=== PATIENT | male | born 1950 | race Caucasian/White ===

== ENCOUNTER 2017-03-06 01:18 | Inpatient (IN) | payer OTHER, MEDICARE ==
[2017-03-06] VITALS (9 sets, daily range): BP systolic 126–177; BP diastolic 72–99; PULSE 54–97; RESP 16–22; TEMP 95.7–98.4; O2SAT 95–99
[2017-03-06] MEDS ORDERED: MORP1TAB24 PO (01:30)
[2017-03-06] MEDS ORDERED: OXYC1CAP PO (01:30)
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
[2017-03-06] MEDS ORDERED: ONDANSETRON HCL 4 MG/2 ML VIAL IV PRN ×2 (04:00→08:15)
[2017-03-06] MEDS ORDERED: ACETAMINOPHEN 325 MG TAB PO PRN (04:00)
[2017-03-06] MEDS ORDERED: SODIUM CHLORIDE 0.9% FLUSH 10 ML FLUSH IVF PRN (04:00)
[2017-03-06] MEDS: MORPHINE SULFATE 4 MG/ML INJ IV PUSH PRN ×3 (06:44→21:17)
[2017-03-06] MEDS: SODIUM CHLORIDE 0.9% FLUSH 10 ML FLUSH IV FLUSH SCH ×2 (08:12→21:00)
[2017-03-06] MEDS ORDERED: SODIUM CHLORIDE 0.9% FLUSH 10 ML FLUSH IV FLUSH PRN (08:15)
[2017-03-06] MEDS ORDERED: ENALAPRILAT 1.25 MG/ML VIAL IV PRN (08:15)
[2017-03-06] MEDS: DOCUSATE SODIUM 50 MG/SENNA 8.6 MG TAB PO SCH ×2 (09:20→21:00)
[2017-03-06] MEDS: KETOROLAC TROMETHAMINE 30 MG/ML (IVP) VIAL IVP SCH ×3 (09:20→21:15)
[2017-03-06] MEDS: ACETAMINOPHEN 1000 MG/100 ML VIAL IV SCH ×3 (09:21→21:14)
--- NOTE | 2017-03-06 09:27 | RADRPT ---
EXAM DATE/TIME: 03/06/2017 09:20 [facility] COMPARISON: No previous studies available for comparison. INDICATIONS : History of Rib fractures right side. Right sided chest pain MEDICAL HISTORY : Hepatitis C. SURGICAL HISTORY : None. ENCOUNTER: Initial ACUITY: 1 day PAIN SCORE: 9/10 LOCATION: Right chest FINDINGS: The right lung is clear. At the left lung base laterally proximal opacity is seen possibly representi ng an area of scarring versus mild focal infiltrate. There is mild cardiomegaly. There is abnormal fo susie lucency the right distal clavicle with some adjacent calcific density along the superior margin. A right distal clavicular fracture is suspected, and a pathologic fracture is difficult to exclude gi carlos the appearance. Correlate for point tenderness. CONCLUSION: Right distal clavicular fracture, possibly pathologic is suspected. Correlate for point tenderness ju st proximal to the acromioclavicular joint. Right lung is clear. Left basilar opacity likely scarring versus minimal focal infiltrate. Kaden Zacarias MD on March 06, 2017 at 9:23 Board Certified Radiologist. This report was verified electronically.
[2017-03-06] MEDS ORDERED: HYDROmorphone HCL PF 1 MG/ML VIAL IV PUSH PRN (11:00)
[2017-03-06] MEDS: RESP: ALBUTEROL 2.5 MG/IPRATROPIUM 0.5 MG NEB (SCH) NEB ×3 (11:03→20:28)
[2017-03-06] MEDS: METHOCARBAMOL 500 MG TAB PO SCH ×3 (11:07→21:16)
[2017-03-06] MEDS: LIDOCAINE HCL 5% PATCH T-DERMAL SCH (11:07)
[2017-03-06] MEDS: BACITRACIN TOP OINT 15 GM TUBE TOP SCH ×2 (11:08→21:00)
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
[2017-03-06] MEDS: ENOXAPARIN SODIUM 30 MG/0.3 ML SYRINGE SQ SCH (13:50)
[2017-03-06] MEDS: MORPHINE SULFATE 15 MG CONTROLLED RELEASE TAB PO SCH ×2 (13:50→21:16)
[2017-03-07] VITALS (8 sets, daily range): BP systolic 112–158; BP diastolic 66–101; PULSE 67–102; RESP 16–20; TEMP 96.9–99.8; O2SAT 91–96
[2017-03-07] MEDS: KETOROLAC TROMETHAMINE 30 MG/ML (IVP) VIAL IVP SCH ×4 (01:43→19:50)
[2017-03-07] MEDS: ENOXAPARIN SODIUM 30 MG/0.3 ML SYRINGE SQ SCH ×2 (01:43→14:48)
[2017-03-07] MEDS: ACETAMINOPHEN 1000 MG/100 ML VIAL IV SCH (02:15)
[2017-03-07] MEDS: METHOCARBAMOL 500 MG TAB PO SCH ×3 (05:01→23:27)
[2017-03-07 07:45] LABS: AUTOMATED NEUTROPHIL # 3.7 TH/MM3 (1.8-7.7); BASOPHIL % 0.3 % (0.0-2.0); EOSINOPHIL # 0.2 TH/MM3 (0-0.4); EOSINOPHIL % 3.9 % (0.0-4.0); HEMATOCRIT 37.8 % (39.0-51.0); HEMO FLAGS DIFF FINAL; LYMPH % 19.1 % (9.0-44.0); LYMPHOCYTE # 1.1 TH/MM3 (1.0-4.8); MEAN CELL VOLUME 92.7 FL (80.0-100.0); MEAN CORPUSCULAR HEMOGLOBIN 31.2 PG (27.0-34.0); MEAN CORPUSCULAR HGB CONC 33.6 % (32.0-36.0); MONO % 10.1 % (0.0-8.0); NEUT % 66.6 % (16.0-70.0); PLATELET COUNT 167 TH/MM3 (150-450); RED BLOOD COUNT 4.07 MIL/MM3 (4.50-5.90); RED CELL DISTRIBUTION WIDTH 14.8 % (11.6-17.2); WHITE BLOOD COUNT 5.5 TH/MM3 (4.0-11.0)
[2017-03-07] MEDS: RESP: ALBUTEROL 2.5 MG/IPRATROPIUM 0.5 MG NEB (SCH) NEB ×4 (08:01→21:17)
[2017-03-07 08:35] LABS: BICARBONATE 29.1 MEQ/L (21.0-32.0)
[2017-03-07] MEDS: DOCUSATE SODIUM 50 MG/SENNA 8.6 MG TAB PO SCH ×2 (09:00→19:49)
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
[2017-03-07] MEDS: MORPHINE SULFATE 15 MG CONTROLLED RELEASE TAB PO SCH ×2 (09:24→19:49)
[2017-03-07] MEDS: BACITRACIN TOP OINT 15 GM TUBE TOP SCH ×2 (09:24→19:50)
[2017-03-07] MEDS: SODIUM CHLORIDE 0.9% FLUSH 10 ML FLUSH IV FLUSH SCH ×2 (09:25→19:50)
[2017-03-07] MEDS: LIDOCAINE HCL 5% PATCH T-DERMAL SCH (09:25)
[2017-03-07] MEDS ORDERED: PNEUMOCOCCAL POLYVALENT INJ 25 MCG/0.5 ML SYR IM ONE (10:00)
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
[2017-03-07] MEDS ORDERED: LIDO5DIS5 T-DERMAL (16:36)
[2017-03-08] VITALS (7 sets, daily range): BP systolic 118–150; BP diastolic 81–92; PULSE 82–88; RESP 17–18; TEMP 97.8–99.5; O2SAT 92–95
[2017-03-08] MEDS: KETOROLAC TROMETHAMINE 30 MG/ML (IVP) VIAL IVP SCH ×4 (01:46→20:46)
[2017-03-08] MEDS: ENOXAPARIN SODIUM 30 MG/0.3 ML SYRINGE SQ SCH ×2 (01:46→13:43)
[2017-03-08] MEDS: METHOCARBAMOL 500 MG TAB PO SCH ×3 (06:13→22:13)
[2017-03-08] MEDS: RESP: ALBUTEROL 2.5 MG/IPRATROPIUM 0.5 MG NEB (SCH) NEB ×4 (07:42→20:04)
[2017-03-08] MEDS: DOCUSATE SODIUM 50 MG/SENNA 8.6 MG TAB PO SCH ×2 (09:00→20:47)
[2017-03-08] MEDS: LIDOCAINE HCL 5% PATCH T-DERMAL SCH (10:28)
[2017-03-08] MEDS: SODIUM CHLORIDE 0.9% FLUSH 10 ML FLUSH IV FLUSH SCH ×2 (10:28→20:46)
[2017-03-08] MEDS: MORPHINE SULFATE 15 MG CONTROLLED RELEASE TAB PO SCH ×2 (10:29→20:46)
[2017-03-08] MEDS: BACITRACIN TOP OINT 15 GM TUBE TOP SCH ×2 (10:29→20:50)
--- NOTE | 2017-03-08 14:39 | PD.ORT.PN ---
Subjective Subjective Remarks Patient comfortable. Pain controlled. Objective Vitals Vital Signs Date Time Temp Pulse Resp B/P Pulse Ox O2 Delivery O2 Flow Rate FiO2 03/08/17 12:02 98.8 84 18 139/88 93 03/08/17 08:00 99.5 86 18 135/84 95 03/08/17 07:44 92 21 03/08/17 00:00 98.9 83 17 139/86 94 03/07/17 21:20 91 21 03/07/17 20:00 99.5 91 16 135/73 95 03/07/17 16:00 99.3 76 19 116/83 93 I/O 03/07/17 03/07/17 03/07/17 03/08/17 03/08/17 03/08/17 07:00 15:00 23:00 07:00 15:00 23:00 Intake Total 250 ml 400 ml 720 ml 480 ml Balance 250 ml 400 ml 720 ml 480 ml Intake Oral 400 ml 720 ml 480 ml IV Total 250 ml # Voids 4 2 1 Result Diagram: 03/07/17 0624 03/07/17 0624 Objective Remarks Right clavicle significant ecchymosis swelling noted to shoulder and hands tenderness with direct palpation to fx site 2+ dorsalis pedis pulses +sensation sling in place Right ribs skin intact no obvious deformity tenderness with direct palpation Assessment & Plan Problem List: (1) Multiple fractures of ribs of right side (2) Right clavicle fracture Assessment and Plan 1. Right-sided rib fractures. 2. Right distal clavicle fracture. Non-operative approach for rib and clavicle fractures at this time. Pain management Continue use of sling D/C planning - anticipating home tomorrow Monitor Alejo Christine Mar 08, 2017 14:39
--- NOTE | 2017-03-08 17:21 | PD.CAR.PN ---
CVT Progress Note Subjective/Hospital Course: Patient with right clavicle fracture and right 6-8 rib fractures Bilateral good breath sounds patient is tolerating deep breathing much better Pain is now controlled with combination of medications Patient is out of bed and doing well Will discharge patient tomorrow Objective: Vital Signs Date Time Temp Pulse Resp B/P Pulse Ox O2 Delivery O2 Flow Rate FiO2 03/08/17 16:03 94 21 03/08/17 12:02 98.8 84 18 139/88 93 03/08/17 08:00 99.5 86 18 135/84 95 03/08/17 07:44 92 21 03/08/17 00:00 98.9 83 17 139/86 94 03/07/17 21:20 91 21 03/07/17 20:00 99.5 91 16 135/73 95 Result Diagram: 03/07/17 0624 03/07/17 0624 Richard Marinelli MD Mar 08, 2017 17:21
[2017-03-09] VITALS: BP 130/86; PULSE 73; RESP 16; TEMP 97.7; O2SAT 96
[2017-03-09] MEDS: ENOXAPARIN SODIUM 30 MG/0.3 ML SYRINGE SQ SCH (01:06)
[2017-03-09] MEDS: KETOROLAC TROMETHAMINE 30 MG/ML (IVP) VIAL IVP SCH ×2 (02:24→09:32)
[2017-03-09] MEDS ORDERED: MAGNESIUM HYDROXIDE SUSP 30 ML CUP PO PRN (05:45)
--- NOTE | 2017-03-09 06:54 | PD.ORT.PN ---
Subjective Subjective Remarks Progressing well. no new complaints Objective Vitals Vital Signs Date Time Temp Pulse Resp B/P Pulse Ox O2 Delivery O2 Flow Rate FiO2 03/09/17 00:00 97.7 73 16 130/86 96 03/08/17 21:45 18 03/08/17 21:45 18 03/08/17 20:00 98.8 88 17 150/92 95 03/08/17 16:03 94 21 03/08/17 16:00 97.8 82 18 118/81 94 03/08/17 12:02 98.8 84 18 139/88 93 03/08/17 08:00 99.5 86 18 135/84 95 03/08/17 07:44 92 21 I/O 03/08/17 03/08/17 03/08/17 03/09/17 03/09/17 03/09/17 07:00 15:00 23:00 07:00 15:00 23:00 Intake Total 480 ml 960 ml 600 ml 360 ml Balance 480 ml 960 ml 600 ml 360 ml Intake Oral 480 ml 960 ml 600 ml 360 ml # Voids 1 4 2 1 # Bowel Movements 0 Result Diagram: 03/07/17 0624 03/07/17 0624 Imaging Last 72 hours Impressions Chest X-Ray 03/06/17 0804 Signed Impressions: Service Date/Time: Monday, March 06, 2017 09:20 - CONCLUSION: Right distal clavicular fracture, possibly pathologic is suspected. Correlate for point tenderness just proximal to the acromioclavicular joint. Right lung is clear. Left basilar opacity likely scarring versus minimal focal infiltrate. Kaden Zacarias MD Objective Remarks Right clavicle significant ecchymosis swelling noted to shoulder and hands tenderness with direct palpation to fx site 2+ dorsalis pedis pulses +sensation sling in place Right ribs skin intact no obvious deformity tenderness with direct palpation Assessment & Plan Problem List: (1) Multiple fractures of ribs of right side (2) Right clavicle fracture Assessment and Plan 1. Right-sided rib fractures. 2. Right distal clavicle fracture. Non-operative approach for rib and clavicle fractures at this time. Pain management Continue use of sling D/C planning - anticipating home today Follow-up appointment with Dr. Barker or PA in 2 weeks Scooby Knowles Jr. Mar 09, 2017 06:54
[2017-03-09] MEDS: METHOCARBAMOL 500 MG TAB PO SCH (06:59)
[2017-03-09 08:00] VITALS: BP 150/90; PULSE 72; RESP 16; TEMP 97.6; O2SAT 94
[2017-03-09] MEDS: RESP: ALBUTEROL 2.5 MG/IPRATROPIUM 0.5 MG NEB (SCH) NEB (08:41)
[2017-03-09 08:42] VITALS: O2SAT 93
[2017-03-09] MEDS ORDERED: MAGNESIUM CITRATE SOLN 300 ML BTL PO ONE (09:00)
[2017-03-09] MEDS: LIDOCAINE HCL 5% PATCH T-DERMAL SCH (09:31)
[2017-03-09] MEDS: BACITRACIN TOP OINT 15 GM TUBE TOP SCH (09:32)
[2017-03-09] MEDS: MORPHINE SULFATE 15 MG CONTROLLED RELEASE TAB PO SCH (09:32)
[2017-03-09] MEDS: DOCUSATE SODIUM 50 MG/SENNA 8.6 MG TAB PO SCH (11:18)
[2017-03-09 12:00] VITALS: BP 130/96; PULSE 92; RESP 16; TEMP 95.6; O2SAT 96
== END 2017-03-09 12:24 | disposition home or self-care (01) | DRG 563 ==
LOC: NEPE 01:18 → NEDA 04:01 → NEPFCDU 06:20 → OBSVTOIN 08:10 → N06B 11:45
PROVIDERS: ADMIT Surgery; ATTEND Surgery
DX: S42.031A Displaced fracture of lateral end of right clavicle, initial encounter for closed fracture (principal); S22.41XA Multiple fractures of ribs, right side, initial encounter for closed fracture; S60.211A Contusion of right wrist, initial encounter; V28.4XXA Motorcycle driver injured in noncollision transport accident in traffic accident, initial encounter; Y92.410 Unspecified street and highway as the place of occurrence of the external cause; Z79.891 Long term (current) use of opiate analgesic; M25.569 Pain in unspecified knee; Z23 Encounter for immunization
CPT/HCPCS: 71010; 71101; 73100; 80048; 85025; 90732; 94150; 94640; 94664; G8987-GO; G8987-GP; G8988-GO; G8988-GP; J0131; J1650; J1885; J2270; J2405